=== PATIENT | female | born 1990 | race Asian ===

== ENCOUNTER 2021-10-07 13:43 | Inpatient (IN) ==
[2021-10-07 15:50] LABS: Amorphous Crystals,Urine Moderate /HPF (Few); Bacteria,Urine Occasional /HPF (Few); Bilirubin,Urine Negative (Negative); Blood, Urine Negative (Negative); Glucose,Urine (UA) Negative (Negative); Ketones,Urine 5 mg/dL (Negative); Mucus,Urine Occasional /LPF (Occasional); Nitrite,Urine Negative (Negative); Protein,Urine 30 MG/DL; Squamous Epithelial Cell,Urine Moderate /HPF (0-10); Urine Appearance CLOUDY (Clear); Urine Color Yellow (Yellow); Urine Specific Gravity 1.029 (1.001-1.035); Urine Urobilinogen < 2.0 EU/DL (0.2-1.0)
[2021-10-07] MEDS ORDERED: LEVOFLOXACIN INJ 500 MG/100 ML PREMIX IV ONE (16:13)
[2021-10-07] MEDS ORDERED: MEPERIDINE 50 MG/1 ML VIAL IV ONE ×2 (16:14→22:30)
[2021-10-07] MEDS ORDERED: ONDANSETRON 4 MG/2 ML VIAL IV ONE ×2 (16:14→22:30)
[2021-10-07] MEDS ORDERED: LACTATED RINGERS 1,000 ML IV ONE (16:14)
[2021-10-07] MEDS: LACTATED RINGERS 1,000 ML IV SCH (19:30)
[2021-10-08] MEDS ORDERED: BUTORPHANOL 2 MG/ML VIAL IV PRN (00:03)
[2021-10-08] MEDS ORDERED: ONDANSETRON 4 MG/2 ML VIAL IV PRN ×2 (00:03→10:18)
[2021-10-08] MEDS ORDERED: MEPERIDINE 50 MG/1 ML VIAL IV PRN (00:03)
[2021-10-08 00:49] LABS: Basophils # 0.1 10*3/uL (0.0-0.2); Basophils % 0.5 % (0.0-0.8); Eosinophils # 0.2 10*3/uL (0.0-0.87); Eosinophils % 1.7 % (0.00-10.9); Hematocrit 34.5 VOL% (35.7-47.0); Hemoglobin 10.9 GM/DL (12.0-16.0); Lymphocytes # 2.8 10*3/uL (1.4-4.0); Lymphocytes % 28.5 % (21.3-54.2); Mean Corpuscular HGB Conc 31.6 GM/DL (32-36); Monocytes % 8.6 % (1.7-12.7); Neutrophils % 59.7 % (38.7-73.9); Platelet Count 157 T/CUMM (130-400); Red Blood Count 4.01 MC/CUMM (3.8-5.5); Red Cell Distribution Width 13.6 % (9.3-17.3); White Blood Count 9.8 T/CUMM (4-12)
[2021-10-08 01:12] LABS: Albumin 2.4 G/DL (3.4-5.0); Bilirubin,Total 0.4 MG/DL (0.20-1.00); Calcium 8.6 MG/DL (8.5-10.1); Osmolality,Calculated 272.5 MOS/KG (273-304); Potassium 3.7 MMOL/L (3.5-5.1); Total Protein 6.3 G/DL (6.4-8.2)
[2021-10-08] MEDS: LACTATED RINGERS 1,000 ML IV SCH (03:20)
[2021-10-08] MEDS ORDERED: ceFAZolin 2,000 MG/50 ML DUPLEX IV ONE (07:08)
[2021-10-08] MEDS ORDERED: CITRIC ACID/SODIUM CITRATE 30 ML UDCUP PO ONE (07:08)
[2021-10-08] MEDS ORDERED: FAMOTIDINE 20 MG/2 ML VIAL IV ONE (07:08)
[2021-10-08] MEDS ORDERED: OXYTOCIN/LR 30 UNIT/1,000 ML BAG IV ONE (07:17)
[2021-10-08] MEDS ORDERED: PROMETHAZINE 25 MG/1 ML VIAL IM ONE (07:41)
[2021-10-08] MEDS ORDERED: hydrOXYzine HCL 25 MG/1 ML VIAL IM PRN (07:41)
[2021-10-08] MEDS ORDERED: ePHEDrine 50 MG/ML VIAL IV PRN (07:41)
[2021-10-08] MEDS ORDERED: diphenhydrAMINE 50 MG/1 ML VIAL IV PRN ×2 (07:41)
[2021-10-08] MEDS ORDERED: ONDANSETRON 4 MG/2 ML VIAL IV ONE (07:41)
[2021-10-08] MEDS ORDERED: miSOPROStoL 200 MCG TABLET ONE (08:32)
[2021-10-08] MEDS ORDERED: TRANEXAMIC ACID 1,000 MG/10 ML VIAL ONE (08:33)
[2021-10-08] MEDS ORDERED: SODIUM CHLORIDE 0.9% 100 ML IV ONE ×2 (08:33→08:41)
[2021-10-08] MEDS ORDERED: METHYLERGONOVINE 0.2 MG/1 ML AMP ONE (08:33)
[2021-10-08] MEDS ORDERED: CARBOPROST TROMETHAMINE 250 MCG/ML AMP IM ONE (08:33)
[2021-10-08] MEDS ORDERED: BUPIVACAINE SPINAL 0.75% 2 ML AMP SPINAL ONE (08:35)
[2021-10-08] MEDS ORDERED: ONDANSETRON 4 MG/2 ML VIAL ONE (08:37)
[2021-10-08] MEDS ORDERED: PHENYLEPHRINE 10 MG/1 ML VIAL IV ONE (08:41)
[2021-10-08] MEDS ORDERED: OXYTOCIN 10 UNIT/ML VIAL IM ONE (09:06)
[2021-10-08] MEDS ORDERED: OXYTOCIN 10 UNIT/ML VIAL ONE (09:07)
[2021-10-08] MEDS ORDERED: fentaNYL 100 MCG/2 ML VIAL ONE (09:35)
[2021-10-08] MEDS ORDERED: ACETAMINOPHEN INJ 1,000 MG/100 ML VIAL IV ONE (09:41)
[2021-10-08] MEDS ORDERED: propofoL 200 MG/20 ML VIAL IV ONE (09:41)
[2021-10-08] MEDS ORDERED: SUCCINYLCHOLINE 200 MG/10 ML VIAL ONE (09:42)
[2021-10-08] MEDS ORDERED: KETOROLAC 30 MG/1 ML VIAL ONE (09:43)
[2021-10-08] MEDS ORDERED: DEXAMETHASONE 4 MG/1 ML VIAL ONE ×2 (09:43→11:32)
[2021-10-08] MEDS ORDERED: SEVOFLURANE 1 UNIT/15 MINUTE INH ONE (10:03)
[2021-10-08 10:08] LABS: Bilirubin,Urine Negative (Negative); Blood, Urine Negative (Negative); Glucose,Urine (UA) Negative (Negative); Ketones,Urine 20 mg/dL (Negative); Mucus,Urine Occasional /LPF (Occasional); Nitrite,Urine Negative (Negative); Protein,Urine Negative; RBC,Urine <1 /HPF (0-4); Squamous Epithelial Cell,Urine Occasional /HPF (0-10); Urine Appearance CLEAR (Clear); Urine Color Yellow (Yellow); Urine Specific Gravity 1.013 (1.001-1.035); Urine Urobilinogen < 2.0 EU/DL (0.2-1.0)
[2021-10-08 10:18] LABS: Cord Venous Blood HCO3 23.7 MMOL/L; Cord Venous Blood PCO2 49.1 MMHG; Cord Venous Blood PO2 49.8
[2021-10-08] MEDS ORDERED: OXYTOCIN/LR 20 UNIT/1,000 ML BAG IV ONE ×2 (10:18→18:21)
[2021-10-08] MEDS ORDERED: RHO(D) IMMUNE GLOBULIN 300 MCG SYRINGE IM ONE (10:18)
[2021-10-08] MEDS ORDERED: SIMETHICONE CHEW 80 MG TABLET PO PRN (10:18)
[2021-10-08] MEDS ORDERED: ACETAMINOPHEN 325 MG TABLET PO PRN (10:18)
[2021-10-08] MEDS ORDERED: MAGNESIUM HYDROXIDE SUSP 30 ML UDCUP PO PRN (10:18)
[2021-10-08 10:19] LABS: Cord Arterial Blood HCO3 22.2 MMOL/L
[2021-10-08] MEDS ORDERED: LACTATED RINGERS 1,000 ML IV SCH (10:30)
[2021-10-08] MEDS ORDERED: HYDROmorphone 2 MG/1 ML VIAL IV PRN (10:44)
[2021-10-08] MEDS ORDERED: LIDOCAINE 1% 5 ML VIAL ONE (11:32)
[2021-10-08] MEDS ORDERED: BUPIVACAINE MPF 0.25% 30 ML VIAL ONE (11:32)
[2021-10-08] MEDS ORDERED: hydrOXYzine HCL 25 MG TABLET PO PRN (14:15)
[2021-10-08 15:12] LABS: Basophils % 0.2 % (0.0-0.8); Hematocrit 32.1 VOL% (35.7-47.0); Hemoglobin 10.1 GM/DL (12.0-16.0); Immature Granulocytes % 0.8 %; Immature Granulocytes Absolute 0.15 #; Lymphocytes # 1.5 10*3/uL (1.4-4.0); Lymphocytes % 7.9 % (21.3-54.2); Mean Corpuscular HGB Conc 31.5 GM/DL (32-36); Mean Corpuscular Volume 86.8 FL (87-102); Monocytes % 4.9 % (1.7-12.7); Neutrophils % 86.2 % (38.7-73.9); Platelet Count 159 T/CUMM (130-400); Red Cell Distribution Width 13.6 % (9.3-17.3); White Blood Count 18.4 T/CUMM (4-12)
[2021-10-08] MEDS: KETOROLAC 30 MG/1 ML VIAL IV SCH ×2 (17:42→21:57)
[2021-10-08] MEDS: ACETAMINOPHEN 500 MG TABLET PO SCH (18:18)
[2021-10-08] MEDS: DOCUSATE SODIUM 100 MG CAPSULE PO SCH (21:52)
[2021-10-09] MEDS: ACETAMINOPHEN 500 MG TABLET PO SCH (00:09)
[2021-10-09] MEDS: KETOROLAC 30 MG/1 ML VIAL IV SCH (04:07)
[2021-10-09 05:47] LABS: Basophils % 0.3 % (0.0-0.8); Eosinophils # 0.1 10*3/uL (0.0-0.87); Eosinophils % 0.8 % (0.00-10.9); Hematocrit 25.4 VOL% (35.7-47.0); Immature Granulocytes % 0.6 %; Immature Granulocytes Absolute 0.07 #; Lymphocytes # 2.8 10*3/uL (1.4-4.0); Mean Corpuscular HGB Conc 31.5 GM/DL (32-36); Mean Platelet Volume 11.3 FL (9.6-12.0); Monocytes % 7.4 % (1.7-12.7); Neutrophils % 66.9 % (38.7-73.9); Platelet Count 145 T/CUMM (130-400); Red Blood Count 2.92 MC/CUMM (3.8-5.5); Red Cell Distribution Width 13.7 % (9.3-17.3); White Blood Count 11.8 T/CUMM (4-12)
[2021-10-09] MEDS ORDERED: METOCLOPRAMIDE 10 MG TABLET PO SCH (06:00)
[2021-10-09] MEDS: MULTIVITAMIN (PRENATAL) TABLET PO SCH (08:48)
[2021-10-09] MEDS: FERROUS SULFATE 325 MG TABLET PO SCH ×3 (08:48→21:15)
[2021-10-09] MEDS: DOCUSATE SODIUM 100 MG CAPSULE PO SCH ×3 (08:49→21:15)
[2021-10-09] MEDS: METOCLOPRAMIDE 10 MG TABLET PO SCH ×2 (08:49→16:38)
[2021-10-09] MEDS: IBUPROFEN 800 MG TABLET PO PRN ×2 (10:42→23:44)
[2021-10-10] MEDS: METOCLOPRAMIDE 10 MG TABLET PO SCH ×2 (01:35→08:40)
[2021-10-10] MEDS: DOCUSATE SODIUM 100 MG CAPSULE PO SCH (08:40)
[2021-10-10] MEDS: MULTIVITAMIN (PRENATAL) TABLET PO SCH (08:40)
[2021-10-10] MEDS: FERROUS SULFATE 325 MG TABLET PO SCH (08:41)
[2021-10-10 10:18] VITALS: BP 123/64
[2021-10-10 11:49] LABS: Hematocrit 27.2 VOL% (35.7-47.0); Hemoglobin 8.5 GM/DL (12.0-16.0)
== END 2021-10-10 13:10 | disposition home or self-care (01) | DRG 785 ==
LOC: N.LDOUT 13:43 → N.LD 13:45 → N.OB 10-08 13:29
PROVIDERS: ADMIT Obstetrics & Gynecology; ATTEND Obstetrics & Gynecology